=== PATIENT | female | born 1985 | race Caucasian/White ===

== ENCOUNTER 2017-02-21 20:41 | Emergency (ER) | payer MEDICAID ==
[2017-02-21 22:02] LABS: BACTERIA, URINE MOD /hpf; BLOOD, URINE TRACE (NEG); CALCIUM OXALATE CRYSTALS,URINE MANY /hpf; COMMENT (UR) CULTURE INDICATED; CULTURE IF INDICATED CULTURE INDICATED; GLUCOSE,URINE NEG (NEG); KETONE, URINE NEG (NEG); MUCUS URINE FEW /lpf (OCC); NITRITE,URINE NEG (NEG); PH, URINE 6.5 (5.0-8.5); SQUAMOUS EPITHELIAL CELL URINE 14 /hpf (0-5); URINE COLOR YELLOW (YELLW/STRAW)
--- NOTE | 2017-02-21 22:09 | PD ---
HPI Travel History International Travel<30 Days: No Contact w/Intl Traveler<30Days: No Known Affected Area: No History of Present Illness HPI This patient is a 32-year-old 5 para 20-2 EDC is April 22, 2017 presently at 31 weeks and 3 days she presents with chief complaint of suprapubic pain since yesterday intermittent dull to sharp pain no ruptured membranes no vaginal bleeding the baby is active Rest makes it better nothing makes it worse No fever no chills mild nausea no vomiting increase frequency and urgency previously treated for urinary tract infection during this as well as has a history of diet-controlled gestational diabetes Patient recently moved to this area is looking for physician will referred her to [facility] History Past Medical History Narrative Medical Allergy to amoxicillin causes hives diet controlled gestational diabetes Obstetric History Obstetric History First baby born 2004 female infant weight 5 lbs. 13 oz. born at 36 weeks vaginal delivery uncomplicated other than labor Second baby born 2009 female weight 8 lbs. 8 oz. born at 41 weeks vaginal VIP 1 Spontaneous AB 1 Past Surgical History Narrative Surgical Dental surgery Family History Narrative Family History Mother with diabetes Social History Alcohol Use: No Tobacco Use: No Substance Abuse: No Allergies-Medications Comments No known drug allergies Review of Systems General / Constitutional: No: Fever, Weight Gain, Weight Loss, Chills, Other Eyes: No: Diploplia, Blurred Vision, Visual changes, Pain, Photophobia, Other HENT: No: Headaches, Vertigo, Dental Difficulties, Lightheadedness, Other Cardiovascular: No: Irregular Rhythm, Chest Pain or Discomfort, Palpitations, Tachycardia, Syncope, Varicosities, Edema, Cyanosis, Other Respiratory: No: Cough, Short of Breath, Wheezing, Other Gastrointestinal: Nausea, Abdominal Pain Genitourinary: Urgency, Frequency Musculoskeletal: No: Limited ROM, Weakness, Cramping, Edema, Pain, Other Skin: No Rash, No Itching, No Dryness, No Lumps, No Change in Pigmentation, No Change in Nails, No Alopecia, No Lesions, No Breast Lumps, No Breast Tenderness , No Breast Swelling, No Other Neurologic: No: Weakness, Dizziness, Syncope, Focal Abnormalities, Coordination Problem, Headache, Slurred Speech, Seizures, Other Physical Exam Narrative GENERAL: Well-nourished, well-developed patient. Alert oriented 3 and cooperative in no acute distress SKIN: Warm and dry. CARDIOVASCULAR: Regular rate and rhythm without murmurs, gallops, or rubs. RESPIRATORY: Breath sounds equal bilaterally. No accessory muscle use. ABDOMEN/GI: Abdomen soft, non-tender, bowel sounds present, no rebound, no guarding gravid size slightly greater than dates obese no epigastric or right upper quadrant tenderness no rebound tenderness no palpable contractions Gravid to [-] weeks size 33 Fundal Height: [-] GENITOURINARY: External Genitalia: intact and normal in appearance BUS glands: [-] Cervix: [-] Posterior soft Dilatation: [-] 0 Effacement: [-] 0 Station: [-] Ballotable Presentation: [-] Vertex documented by ultrasound Membranes: [intact amnisure is negative Uterine Contractions: [-]0 nonpalpable and none recorded on the FHT's: Category: [-] 1 Baseline: [-] 130 Reactive: [-] + Variability: [-] Moderate znit-hv-yflr variability Decels: [-] 0 EXTREMITIES: No cyanosis or edema. 2+ reflexes BACK: Nontender without obvious deformity. No CVA tenderness. NEUROLOGICAL: Awake and alert. Motor and sensory grossly within normal limits. Five out of 5 muscle strength in all muscle groups. Normal speech. Data Data Vital Signs Reviewed: Yes (blood pressures 129/71 pulse 104 respiration 18 temperature is 98.9) Orders Urinalysis - C+S If Indicated (02/21/17 21:02) Fibronectin (02/21/17 21:14) Labs Bedside ultrasound is done it's a vertex presentation BPD measures 8.17 that equals 32 weeks and 1 day Posterior grade 2 placenta no abruption no previa Positive flexion Positive tone Positive breathing Amniotic fluid index is 14.5 No funneling Cervix is long MDM Medical Record Reviewed: No (no medical records available) Interpretation(s) 32-year-old at 31 weeks and 3 days Not in labor Diet controlled gestational diabetes Obesity In search of physician Rule out UTI Narrative Course / MDM Urinalysis is indicative of urinary tract infection with rbc's white blood cells and leukocyte esterase fibronectin is negative Will discharge patient home Macrobid one by mouth twice a day for 7 days By mouth fluids kick counts Referral to [facility] Plan Patient has been monitored/category 1 tracing with a 10 out of 10 biophysical profile fibronectin Urinalysis amnisure is negative If urinalysis indicative of UTI will treat with Macrobid one by mouth twice a day for 7 days By mouth fluid hydration Warm tub bath Rest kick counts Telephone number to [facility] Diagnosis Diagnosis: Primary Impression: with 31 completed weeks gestation Additional Impression: Urinary tract infection affecting care of mother in second trimester, antepartum Disposition: 01 DISCHARGE HOME Condition: Stable Ashlie Evans MD February 21, 2017 22:09
== END 2017-02-21 22:36 | disposition home or self-care (01) ==
LOC: HOBED 20:41
DX: O23.43 Unspecified infection of urinary tract in pregnancy, third trimester (principal); O24.410 Gestational diabetes mellitus in pregnancy, diet controlled; Z3A.31 31 weeks gestation of pregnancy
CPT/HCPCS: 76815; 81001; 82731; 84112; 87086

== ENCOUNTER 2017-03-09 01:45 | Emergency (ER) | payer MEDICAID ==
[~2017-03-09] VITALS: Ht 170.2 cm; Wt 99.0 kg
[2017-03-09 01:59] VITALS: BP 156/72; PULSE 75; RESP 22; TEMP 98; O2SAT 98
[2017-03-09 02:11] VITALS: BP 133/82; PULSE 101; RESP 20; TEMP 98.2; O2SAT 100
[2017-03-09] MEDS ORDERED: PREN29TA PO (02:14)
[2017-03-09] MEDS ORDERED: SODIUM CHLORIDE 0.9% FLUSH 10 ML FLUSH IVF PRN (02:30)
[2017-03-09 02:57] LABS: AUTOMATED NEUTROPHIL # 11.3 TH/MM3 (1.8-7.7); BASOPHIL % 0.3 % (0.0-2.0); EOSINOPHIL # 0.1 TH/MM3 (0-0.4); EOSINOPHIL % 0.8 % (0.0-4.0); HEMATOCRIT 31.9 % (35.0-46.0); HEMO FLAGS DIFF FINAL; LYMPH % 12.1 % (9.0-44.0); LYMPHOCYTE # 1.7 TH/MM3 (1.0-4.8); MEAN CELL VOLUME 78.9 FL (80.0-100.0); MEAN CORPUSCULAR HEMOGLOBIN 25.8 PG (27.0-34.0); MEAN CORPUSCULAR HGB CONC 32.7 % (32.0-36.0); MONO % 5.3 % (0.0-8.0); NEUT % 81.5 % (16.0-70.0); PLATELET COUNT 342 TH/MM3 (150-450); RED BLOOD COUNT 4.05 MIL/MM3 (4.00-5.30); RED CELL DISTRIBUTION WIDTH 14.2 % (11.6-17.2); WHITE BLOOD COUNT 13.9 TH/MM3 (4.0-11.0)
[2017-03-09 03:04] LABS: APTT (PATIENT) 28.5 SEC (24.3-30.1); INTERNATIONAL NORMALIZED RATIO 0.9 RATIO; PROTHROMBIN TIME - PATIENT 10.2 SEC (9.8-11.6)
--- NOTE | 2017-03-09 03:26 | RADRPT ---
EXAM DATE/TIME: 03/09/2017 03:01 [facility] COMPARISON: No previous studies available for comparison. INDICATIONS : Shortness of breath. MEDICAL HISTORY : None. SURGICAL HISTORY : None. ENCOUNTER: Initial ACUITY: 1 day PAIN SCORE: 0/10 LOCATION: Bilateral chest FINDINGS: A single view of the chest demonstrates the lungs to be symmetrically aerated without evidence of mas s, infiltrate or effusion. The cardiomediastinal contours are unremarkable. Osseous structures are intact. CONCLUSION: Normal examination. Porfirio Urena MD on March 09, 2017 at 3:24 Board Certified Radiologist. This report was verified electronically.
[2017-03-09 03:31] LABS: ANION GAP 11 MEQ/L (5-15); BICARBONATE 22.5 MEQ/L (21.0-32.0); BLOOD UREA NITROGEN 7 MG/DL (7-18); CHLORIDE 104 MEQ/L (98-107); CREATINE KINASE 42 U/L (26-192); GLOMERULAR FILTRATION RATE 146 ML/MIN (>89); MAGNESIUM 1.7 MG/DL (1.5-2.5); POTASSIUM 3.7 MEQ/L (3.5-5.1); SODIUM (NA) 137 MEQ/L (136-145)
--- NOTE | 2017-03-09 03:53 | PD ---
HPI Chief Complaint: Abdominal Pain Time Seen by Provider: 02:26 Travel History International Travel<30 days: No Contact w/Intl Traveler<30days: No Traveled to known affect area: No History of Present Illness HPI 32yo F who is 34 weeks with gestational diabetes presents to the ED with c/o midsternal chest pain and sob for a few hours. Denies any n/v, fever, cough, vaginal bleeding. States pain is midsternal, xyphoid process and at times radiates down abdomen. Denies previous similar pain. Denies history of PE or DVT. PFSH Past Medical History Diabetes: Yes (gestational ) Patient Takes Glucophage: No Tetanus Vaccination: > 5 Years ?: : 5 Para: 2 Miscarriage: 1 : 1 Past Surgical History Surgical History: No Previous Surgery Social History Alcohol Use: No Tobacco Use: No Substance Use: No Allergies-Medications (Allergen,Severity, Reaction): Coded Allergies: Amoxicillin (Verified Allergy, Mild, Hives, 03/09/17) Reported Meds & Prescriptions Reported Meds & Active Scripts Active Macrobid (Nitrofurantoin Monohydrate Macrocrystals) 100 Mg Capsule 100 Mg PO BID 5 Days Reported Plus Iron 29-1 mg ( Vit-Iron Carbonyl) 1 Tab Tab 1 Tab PO DAILY Review of Systems Except as stated in HPI: all other systems reviewed are Neg Physical Exam Narrative GENERAL: 32yo F in mild distress. SKIN: Focused skin assessment warm/dry. HEAD: Atraumatic. Normocephalic. CARDIOVASCULAR: Regular rate and rhythm. No murmur appreciated. RESPIRATORY: No accessory muscle use. Clear to auscultation. Breath sounds equal bilaterally. GASTROINTESTINAL: Abdomen soft, gravid. No tenderness to palpation. MUSCULOSKELETAL: No obvious deformities. No clubbing. No cyanosis. No edema. NEUROLOGICAL: Awake and alert. No obvious cranial nerve deficits. Motor grossly within normal limits. Normal speech. PSYCHIATRIC: Appropriate mood and affect; insight and judgment normal. Data Data Last Documented VS Vital Signs Date Time Temp Pulse Resp B/P Pulse Ox O2 Delivery O2 Flow Rate FiO2 03/09/17 06:41 85 19 124/67 98 03/09/17 04:00 Room Air 03/09/17 02:11 98.2 Orders Electrocardiogram (03/09/17 02:26) Basic Metabolic Panel (Bmp) (03/09/17 02:26) Ckmb (Isoenzyme) Profile (03/09/17 02:26) Complete Blood Count With Diff (03/09/17 02:26) Magnesium (Mg) (03/09/17 02:26) Prothrombin Time / Inr (Pt) (03/09/17 02:26) Act Partial Throm Time (Ptt) (03/09/17 02:26) Troponin I (03/09/17 02:26) Lipase (03/09/17 02:26) Ecg Monitoring (03/09/17 02:26) Bilateral Bp Monitoring (03/09/17 02:26) Iv Access Insert/Monitor (03/09/17 02:26) Oximetry (03/09/17 02:26) Oxygen Administration (03/09/17 02:26) Sodium Chloride 0.9% Flush (Ns Flush) (03/09/17 02:30) Chest, Single Ap (03/09/17 ) Urinalysis - C+S If Indicated (03/09/17 03:53) Acetaminophen (Tylenol) (03/09/17 04:00) Lung Scan - Perfusion (03/09/17 02:26) Ed Poc Ultrasound (03/09/17 ) Ed Poc Ultrasound (03/09/17 ) Labs Laboratory Tests Test 03/09/17 03/09/17 02:40 03:00 White Blood Count 13.9 TH/MM3 Red Blood Count 4.05 MIL/MM3 Hemoglobin 10.5 GM/DL Hematocrit 31.9 % Mean Corpuscular Volume 78.9 FL Mean Corpuscular Hemoglobin 25.8 PG Mean Corpuscular Hemoglobin 32.7 % Concent Red Cell Distribution Width 14.2 % Platelet Count 342 TH/MM3 Mean Platelet Volume 8.7 FL Neutrophils (%) (Auto) 81.5 % Lymphocytes (%) (Auto) 12.1 % Monocytes (%) (Auto) 5.3 % Eosinophils (%) (Auto) 0.8 % Basophils (%) (Auto) 0.3 % Neutrophils # (Auto) 11.3 TH/MM3 Lymphocytes # (Auto) 1.7 TH/MM3 Monocytes # (Auto) 0.7 TH/MM3 Eosinophils # (Auto) 0.1 TH/MM3 Basophils # (Auto) 0.0 TH/MM3 CBC Comment DIFF FINAL Differential Comment Prothrombin Time 10.2 SEC Prothromb Time International 0.9 RATIO Ratio Activated Partial 28.5 SEC Thromboplast Time Sodium Level 137 MEQ/L Potassium Level 3.7 MEQ/L Chloride Level 104 MEQ/L Carbon Dioxide Level 22.5 MEQ/L Anion Gap 11 MEQ/L Blood Urea Nitrogen 7 MG/DL Creatinine 0.49 MG/DL Estimat Glomerular Filtration 146 ML/MIN Rate Random Glucose 138 MG/DL Calcium Level 8.8 MG/DL Magnesium Level 1.7 MG/DL Total Creatine Kinase 42 U/L Troponin I LESS THAN 0.02 NG/ML Lipase 95 U/L Urine Color YELLOW Urine Turbidity HAZY Urine pH 6.0 Urine Specific [place] 1.022 Urine Protein 30 mg/dL Urine Glucose (UA) NEG mg/dL Urine Ketones 150 mg/dL Urine Occult Blood NEG Urine Nitrite NEG Urine Bilirubin NEG Urine Urobilinogen 2.0 MG/DL Urine Leukocyte Esterase SMALL Urine RBC 59 /hpf Urine WBC 4 /hpf Urine Squamous Epithelial 2 /hpf Cells Urine Renal Epithelial Cells <1 /hpf Urine Calcium Oxalate Crystals OCC /hpf Urine Bacteria RARE /hpf Urine Mucus MOD /lpf Microscopic Urinalysis Comment CULT NOT INDICATED MDM Medical Decision Making Medical Screen Exam Complete: Yes Emergency Medical Condition: Yes Interpretation(s) EKG: Sinus tachycardia at 105bpm. Normal axis. Differential Diagnosis GERD vs. anxiety vs. atypical chest pain vs. musculoskeletal pain vs. costochondritis vs. pneumonia vs. pulmonary embolism Narrative Course 32yo F with atypical pleuritic chest pain and sob. Labs reviewed, leukocytosis at 13.9. Troponin negative. Lipase normal. UA showed small leukocyte. Rare bacteria. RBC 59. Culture not indicated. Pt states she was recently treated for UTI and although culture is not indicated, there are leukocyte and some bacteria. Since pt is , will cover with macrobid. CXR negative. VQ scan negative. Pt given acetaminophen and reevaluated at bedside. Pt states that she is no longer sob and chest pain has improved. States that when she took acetaminophen at home it didnt help but now she has no pain. Denies any abdominal pain. Instructed pt to return to the ED immediately if she has chest pain, sob, or abdominal pain or vaginal bleeding. Pt has no abdominal pain so does not need to go to OBGYN for monitoring. Pt has no abdominal pain on exam. Procedures Procedure Narrative Bedside US performed to confirm IUP and showed positive fetus with positive FHR 124. Diagnosis Primary Impression: Atypical chest pain Patient Instructions: General Instructions Departure Forms: Tests/Procedures Additional Instructions: Please follow up with your PMD in 1-2 days. Return to the ED if symptoms worsen. Med/Other Pt SpecificInfo: Prescription(s) given Scripts Nitrofurantoin Monohydrate Macrocrystals (Macrobid)100 Mg [id number] Mg PO BID 5 Days Ref 0 Prov:Nani Russell DO 03/09/17 Disposition: 01 DISCHARGE HOME Condition: Stable Nani Russell DO March 09, 2017 03:53
[2017-03-09 04:00] VITALS: BP 124/60; PULSE 100; RESP 18; O2SAT 99
[2017-03-09] MEDS ORDERED: ACETAMINOPHEN 325 MG TAB PO ONE (04:00)
[2017-03-09 04:43] LABS: BACTERIA, URINE RARE /hpf; BLOOD, URINE NEG (NEG); CALCIUM OXALATE CRYSTALS,URINE OCC /hpf; GLUCOSE,URINE NEG (NEG); KETONE, URINE 150 mg/dL (NEG); MUCUS URINE MOD /lpf (OCC); NITRITE,URINE NEG (NEG); RENAL EPITHELIAL CELLS <1 /hpf; SQUAMOUS EPITHELIAL CELL URINE 2 /hpf (0-5); URINE COLOR YELLOW (YELLW/STRAW)
[2017-03-09 04:45] LABS: COMMENT (UR) CULT NOT INDICATED; CULTURE IF INDICATED CULT NOT INDICATED
--- NOTE | 2017-03-09 05:28 | RADRPT ---
EXAM DATE/TIME: 03/09/2017 05:02 [facility] COMPARISON: No previous studies available for comparison. INDICATIONS : Shortness of breath with chest pain for two hours. 35 weeks . DOSE: 1.1 mCi Tc99m Labeled MAA IV MEDICAL HISTORY : . Gestational diabetes. SURGICAL HISTORY : None. ENCOUNTER: Initial ACUITY: 1 day PAIN SCALE: 1/10 LOCATION: chest TECHNIQUE: The patient was injected with MAA, and eight-view perfusion scan was performed. FINDINGS: PERFUSION: There is a homogenous pattern of radiotracer uptake throughout both lungs. CONCLUSION: Normal examination. Porfirio Urena MD on March 09, 2017 at 5:27 Board Certified Radiologist. This report was verified electronically.
[2017-03-09] MEDS ORDERED: MACR100C2 PO (06:35)
[2017-03-09 06:41] VITALS: BP 124/67
--- NOTE | 2017-03-09 14:19 | EKG ---
Date Performed: 03/09/2017 Time Performed: 02:08:09 PTAGE: 32 years EKG: SINUS TACHYCARDIA ABNORMAL RHYTHM ECG NO PREVIOUS TRACING DOCTOR: Justice Hensley Interpretating Date/Time 03/09/2017 14:17:39
== END 2017-03-09 07:00 | disposition home or self-care (01) ==
LOC: NEPE 01:45
DX: O26.893 Other specified pregnancy related conditions, third trimester (principal); O24.419 Gestational diabetes mellitus in pregnancy, unspecified control; R07.89 Other chest pain; R06.02 Shortness of breath; Z3A.34 34 weeks gestation of pregnancy
CPT/HCPCS: 71010; 78580; 80048; 81001; 82550; 83690; 83735; 84484; 85025; 85610; 85730; 93005; 99285; A9540

== ENCOUNTER 2017-04-05 10:04 | Inpatient (IN) | payer MEDICAID ==
[2017-04-05] VITALS (14 sets, daily range): BP systolic 120–138; BP diastolic 60–76; PULSE 79–121; RESP 16–18; TEMP 98.6
[2017-04-05] MEDS: GENTAMICIN INJ 100 MG in SODIUM CHLORIDE 0.9% INJ 100 ML IV SCH ×2 (03:00→14:59)
[~2017-04-05 10:04] MED LIST: PREN29TA PO
--- NOTE | 2017-04-05 10:37 | PD ---
HPI Chief Complaint Contractions and back pain Date Seen: Apr 05, 2017 Travel History International Travel<30 Days: No Contact w/Intl Traveler<30Days: No Known Affected Area: No History of Present Illness HPI Patient is a 32 year old at 37-4/7 weeks gestation who presents today for contractions and back pain. The back pain started about 2 hours ago and is described as a constant, sharp pain. She has tried Tylenol without relief in pain. Contractions are occurring q15-20 minutes and have been occurring for the past several days. She denies any dysuria but has noticed pink tinged fluid on her toilet paper. She denies any vaginal bleeding or discharge. No gush or leaking of fluid. Positive movement. care with [facility]. History Past Medical History Narrative Medical Gestational diabetes- diet controlled Obstetric History Obstetric History x 2, one at 36 weeks gestation, one at 41 weeks gestation 1 spontaneous 1 elective Past Surgical History Surgical History: No Previous Surgery Family History Family History: Negative Social History Alcohol Use: No Tobacco Use: No Substance Abuse: No Allergies-Medications (Allergen,Severity, Reaction): Coded Allergies: Amoxicillin (Verified Allergy, Mild, Hives, 04/03/17) Home Meds Reported Medications Vit-Iron Carbonyl ( Plus Iron 29-1 mg)1 Tab Tab1 Tab PO DAILY #30 TAB Ref 0 03/09/17 Review of Systems Except as stated in HPI: all other systems reviewed are Neg General / Constitutional: No: Fever, Chills Eyes: No: Visual changes HENT: No: Headaches Cardiovascular: No: Chest Pain or Discomfort Respiratory: No: Short of Breath Gastrointestinal: Nausea, Diarrhea, Abdominal Pain, No: Vomiting Genitourinary: Pelvic Pain, No: Discharge, Vaginal Bleeding Musculoskeletal: No: Edema Psychiatric: No: Substance Abuse Physical Exam Narrative GENERAL: Well-nourished, well-developed patient. SKIN: Warm and dry. HEAD: Normocephalic and atraumatic. EYES: No scleral icterus. No injection or drainage. ENT: No nasal drainage noted. Mucous membranes pink. Airway patent. NECK: Supple, trachea midline. No JVD. CARDIOVASCULAR: Regular rate and rhythm without murmurs, gallops, or rubs. RESPIRATORY: Breath sounds equal bilaterally. No accessory muscle use. ABDOMEN/GI: Abdomen soft, non-tender, bowel sounds present, no rebound, no guarding Gravid to 37 weeks size GENITOURINARY: External Genitalia: intact and normal in appearance BUS glands: normal Cervix: posterior Dilatation: 1 Effacement: 0 Station: -3 Presentation: vertex Membranes: intact Uterine Contractions: occasional FHT's: Category: I Baseline: 130 Reactive: + Variability: moderate Decels: none EXTREMITIES: No cyanosis or edema. BACK: Nontender without obvious deformity. No CVA tenderness. NEUROLOGICAL: Awake and alert. Motor and sensory grossly within normal limits. Normal speech. Data Data Vital Signs Reviewed: Yes MDM Medical Record Reviewed: Yes Narrative Course / MDM 32 year old at 37-4/7 weeks gestation. 1. IUP- Category I tracing, reassuring. 2. Contractions- occasional, not in labor at this time. 3. No CVA tenderness, back pain likely secondary to contractions/early labor. Will give Fentanyl 50mcg IM once for pain. 4. Bedside glucose 103. Discharge to home, follow-up with [facility]. sdw Dr. Tanner Addendum: No pain relief with Fentanyl. Patient continues to have significant pain. Will obtain UA for further evaluation. UA significant for moderate blood, likely secondary to nephrolithiasis. Will admit for 24 hour observation for pain control and hydration in the setting of nephrolithiasis. Diagnosis Diagnosis: Primary Impression: Back pain affecting in third trimester Additional Impression: 37 weeks gestation of Allison Hernandez MD R2 Apr 05, 2017 10:37
[2017-04-05 12:20] LABS: BACTERIA, URINE RARE /hpf; BLOOD, URINE MOD (NEG); COMMENT (UR) CULTURE INDICATED; CULTURE IF INDICATED CULTURE INDICATED; GLUCOSE,URINE NEG (NEG); KETONE, URINE 40 mg/dL (NEG); MUCUS URINE FEW /lpf (OCC); NITRITE,URINE NEG (NEG); PH, URINE 5.5 (5.0-8.5); SQUAMOUS EPITHELIAL CELL URINE 8 /hpf (0-5); URINE COLOR YELLOW (YELLW/STRAW)
[2017-04-05] MEDS ORDERED: NALOXONE HCL 0.4 MG/ML AMP IV PRN (13:15)
[2017-04-05] MEDS ORDERED: ACETAMINOPHEN 325 MG TAB PO PRN (13:15)
[2017-04-05] MEDS ORDERED: SODIUM CHLORIDE 0.9% FLUSH 10 ML FLUSH IV FLUSH PRN (13:15)
--- NOTE | 2017-04-05 13:15 | HHI.HP ---
History & Physical H&P HPI Chief Complaint Contractions and back pain Date Seen: Apr 05, 2017 Travel History International Travel<30 Days: No Contact w/Intl Traveler<30Days: No Known Affected Area: No History of Present Illness HPI Patient is a 32 year old at 37-4/7 weeks gestation who presents today for contractions and back pain. The back pain started about 2 hours ago and is described as a constant, sharp pain. She has tried Tylenol without relief in pain. Contractions are occurring q15-20 minutes and have been occurring for the past several days. She denies any dysuria but has noticed pink tinged fluid on her toilet paper. She denies any vaginal bleeding or discharge. No gush or leaking of fluid. Positive movement. care with [facility]. History (Limited) History Past Medical History Narrative Medical Gestational diabetes- diet controlled Obstetric History Obstetric History x 2, one at 36 weeks gestation, one at 41 weeks gestation 1 spontaneous 1 elective Past Surgical History Surgical History: No Previous Surgery Family History Family History: Negative Social History Alcohol Use: No Tobacco Use: No Substance Abuse: No Allergies-Medications Allergies-Medications (Allergen,Severity, Reaction): Coded Allergies: Amoxicillin (Verified Allergy, Mild, Hives, 04/03/17) Home Meds Reported Medications Vit-Iron Carbonyl ( Plus Iron 29-1 mg)1 Tab Tab1 Tab PO DAILY #30 TAB Ref 0 03/09/17 ROS Review of Systems Except as stated in HPI: all other systems reviewed are Neg General / Constitutional: No: Fever, Chills Eyes: No: Visual changes HENT: No: Headaches Cardiovascular: No: Chest Pain or Discomfort Respiratory: No: Short of Breath Gastrointestinal: Nausea, Diarrhea, Abdominal Pain, No: Vomiting Genitourinary: Pelvic Pain, No: Discharge, Vaginal Bleeding Musculoskeletal: No: Edema Psychiatric: No: Substance Abuse Physical Exam Physical Exam Narrative GENERAL: Well-nourished, well-developed patient. SKIN: Warm and dry. HEAD: Normocephalic and atraumatic. EYES: No scleral icterus. No injection or drainage. ENT: No nasal drainage noted. Mucous membranes pink. Airway patent. NECK: Supple, trachea midline. No JVD. CARDIOVASCULAR: Regular rate and rhythm without murmurs, gallops, or rubs. RESPIRATORY: Breath sounds equal bilaterally. No accessory muscle use. ABDOMEN/GI: Abdomen soft, non-tender, bowel sounds present, no rebound, no guarding Gravid to 37 weeks size GENITOURINARY: External Genitalia: intact and normal in appearance BUS glands: normal Cervix: posterior Dilatation: 1 Effacement: 0 Station: -3 Presentation: vertex Membranes: intact Uterine Contractions: occasional FHT's: Category: I Baseline: 130 Reactive: + Variability: moderate Decels: none EXTREMITIES: No cyanosis or edema. BACK: Nontender without obvious deformity. No CVA tenderness. NEUROLOGICAL: Awake and alert. Motor and sensory grossly within normal limits. Normal speech. Data Data Data Vital Signs Reviewed: Yes MDM MDM Medical Record Reviewed: Yes Narrative Course / MDM 32 year old at 37-4/7 weeks gestation. 1. IUP- Category I tracing, reassuring. 2. Contractions- occasional, not in labor at this time. 3. No CVA tenderness, back pain likely secondary to contractions/early labor. Will give Fentanyl 50mcg IM once for pain. 4. Bedside glucose 103. Discharge to home, follow-up with [facility]. sdw Dr. Tanner Addendum: No pain relief with Fentanyl. Patient continues to have significant pain. Will obtain UA for further evaluation. UA significant for moderate blood, likely secondary to nephrolithiasis. Will admit for 24 hour observation for pain control and hydration in the setting of nephrolithiasis. Allison Hernandez MD R2 Apr 05, 2017 13:15
[2017-04-05] MEDS: ACETAMINOPHEN/HYDROcodone 325 MG/10 MG TAB PO PRN ×2 (13:51→21:46)
[2017-04-05] MEDS ORDERED: ACETAMINOPHEN/HYDROcodone 325 MG/5 MG TAB PO PRN (14:00)
[2017-04-05] MEDS: ONDANSETRON ODT 4 MG TAB PO PRN ×2 (14:18→19:43)
[2017-04-05 14:39] LABS: AUTOMATED NEUTROPHIL # 13.8 TH/MM3 (1.8-7.7); BASOPHIL % 0.2 % (0.0-2.0); EOSINOPHIL % 0.2 % (0.0-4.0); HEMATOCRIT 32.9 % (35.0-46.0); HEMO FLAGS DIFF FINAL; LYMPH % 8.2 % (9.0-44.0); LYMPHOCYTE # 1.3 TH/MM3 (1.0-4.8); MEAN CORPUSCULAR HEMOGLOBIN 25.1 PG (27.0-34.0); MEAN CORPUSCULAR HGB CONC 32.2 % (32.0-36.0); MONO % 4.3 % (0.0-8.0); NEUT % 87.1 % (16.0-70.0); PLATELET COUNT 350 TH/MM3 (150-450); RED BLOOD COUNT 4.21 MIL/MM3 (4.00-5.30); RED CELL DISTRIBUTION WIDTH 14.9 % (11.6-17.2); WHITE BLOOD COUNT 15.8 TH/MM3 (4.0-11.0)
[2017-04-05 14:49] LABS: BICARBONATE 22.2 MEQ/L (21.0-32.0)
--- NOTE | 2017-04-05 16:04 | RADRPT ---
EXAM DATE/TIME: 04/05/2017 15:12 [facility] COMPARISON: No previous studies available for comparison. INDICATIONS : Flank pain. MEDICAL HISTORY : . Gestational diabetes. SURGICAL HISTORY : None. ENCOUNTER: Initial ACUITY: 2 days PAIN SCORE: 8/10 LOCATION: Bilateral flank MEASUREMENTS: RIGHT KIDNEY: 12.5 x 5.5 x 5.4 cm LEFT KIDNEY: 12.6 x 5.3 x 5.9 cm COMPLETE APPROPRIATE ITEMS PRE PROCEDURE: ID x 2: Complete NameDate of BirthPatient Name Band Education: Nurse/Technologist explained proce dure to patient/family. Patient/family demonstrates understanding of procedure. FINDINGS: RIGHT KIDNEY: Renal cortex is normal in thickness and echotexture. No hydronephrosis, stone, or mass. LEFT KIDNEY: There are mild hydronephrotic changes. There is a 6 mm x 4 mm stone in the upper pole. The renal noel ex is normal in thickness. No mass lesion is identified. BLADDER: Within normal limits given the degree of distension. CONCLUSION: 1. Mild hydronephrotic changes on the left. With a 6 mm stone seen in the collecting system. Harrison Parrish MD on April 05, 2017 at 15:58 Board Certified Radiologist. This report was verified electronically.
--- NOTE | 2017-04-05 16:09 | HHI.HP ---
History & Physical H&P The patient is 32-year-old white female 37 weeks presents complaining of low back pain, denies bleeding or leakage of fluid. No contractions seen on the monitor. heart rate tracing is reactive. Patient initially given IM narcotic which did not help her low back pain. She does not have CVA tenderness , cervix is long fingertip posterior. Patient's review of systems is otherwise negative with no headache blurry vision shortness of breath chest pain or extremity weakness. Urinalysis shows moderate blood 1+ protein large leukocyte esterase but rare bacteria which would be consistent with possible renal stone. The patient's had a history of kidney stones in the past. She was examined along with the family medicine residents and agree with their assessment, plan to admit the patient for observation and IV hydration will give gentamicin IV just cover possible UTI, will strain the urine for possible stone passage, and provide of by mouth or intravenous pain medication when necessary, also renal ultrasound to be done. Thomas Tanner II, MD Apr 05, 2017 16:09
[2017-04-05] MEDS: SODIUM CHLORIDE 0.9% FLUSH 10 ML FLUSH IV FLUSH SCH (21:00)
[2017-04-05] MEDS: LACTATED RINGER'S 1000 ML INJ 1,000 ML IV SCH ×2 (21:07→22:07)
[2017-04-05] MEDS: ZOLPIDEM TARTRATE 5 MG TAB PO PRN (21:46)
[2017-04-06] VITALS (11 sets, daily range): BP systolic 109–144; BP diastolic 49–77; PULSE 93–116; RESP 20; TEMP 98–98.7
[2017-04-06] MEDS: GENTAMICIN INJ 100 MG in SODIUM CHLORIDE 0.9% INJ 100 ML IV SCH ×2 (03:00→16:11)
[2017-04-06] MEDS: ACETAMINOPHEN/HYDROcodone 325 MG/10 MG TAB PO PRN ×3 (03:04→20:11)
--- NOTE | 2017-04-06 07:18 | PD.OB.ANTE ---
Subjective Interval History No acute issues overnight. Vitals are stable, patient remains afebrile. She rates her pain as 6 out of 10 this morning. She cannot tell if it has gotten any better since yesterday, however the Fentanyl is helping. She denies any vaginal bleeding or discharge. No gush or leaking of fluid. Positive movement. No contractions. Antepartum ROS: Reports: movement normal, Denies: New complaints, Loss of fluid, Vaginal bleeding, Contractions Objective Vital Signs Vital Signs Date Time Temp Pulse Resp B/P Pulse Ox O2 Delivery O2 Flow Rate FiO2 04/06/17 04:57 98.1 04/06/17 04:53 95 120/59 04/05/17 23:06 96 120/60 04/05/17 23:06 98.6 18 04/05/17 19:48 98.6 18 04/05/17 19:47 93 138/71 04/05/17 18:09 79 130/64 04/05/17 18:08 18 04/05/17 11:30 101 04/05/17 11:25 90 04/05/17 11:20 96 04/05/17 11:15 101 04/05/17 11:13 86 130/68 04/05/17 11:10 121 04/05/17 11:05 111 04/05/17 10:28 16 04/05/17 10:27 96 129/76 Lab & Micro Results Test 04/05/17 04/05/17 11:59 14:00 Urine Color YELLOW Urine Turbidity HAZY Urine pH 5.5 Urine Specific [place] 1.022 Urine Protein 30 mg/dL Urine Glucose (UA) NEG mg/dL Urine Ketones 40 mg/dL Urine Occult Blood MOD Urine Nitrite NEG Urine Bilirubin NEG Urine Urobilinogen LESS THAN 2.0 MG/DL Urine Leukocyte Esterase LARGE Urine RBC 10 /hpf Urine WBC 10 /hpf Urine Squamous Epithelial 8 /hpf Cells Urine Bacteria RARE /hpf Urine Mucus FEW /lpf Microscopic Urinalysis Comment CULTURE INDICATED White Blood Count 15.8 TH/MM3 Red Blood Count 4.21 MIL/MM3 Hemoglobin 10.6 GM/DL Hematocrit 32.9 % Mean Corpuscular Volume 78.0 FL Mean Corpuscular Hemoglobin 25.1 PG Mean Corpuscular Hemoglobin 32.2 % Concent Red Cell Distribution Width 14.9 % Platelet Count 350 TH/MM3 Mean Platelet Volume 9.1 FL Neutrophils (%) (Auto) 87.1 % Lymphocytes (%) (Auto) 8.2 % Monocytes (%) (Auto) 4.3 % Eosinophils (%) (Auto) 0.2 % Basophils (%) (Auto) 0.2 % Neutrophils # (Auto) 13.8 TH/MM3 Lymphocytes # (Auto) 1.3 TH/MM3 Monocytes # (Auto) 0.7 TH/MM3 Eosinophils # (Auto) 0.0 TH/MM3 Basophils # (Auto) 0.0 TH/MM3 CBC Comment DIFF FINAL Differential Comment Sodium Level 136 MEQ/L Potassium Level 4.0 MEQ/L Chloride Level 103 MEQ/L Carbon Dioxide Level 22.2 MEQ/L Anion Gap 11 MEQ/L Blood Urea Nitrogen 6 MG/DL Creatinine 0.54 MG/DL Estimat Glomerular Filtration 131 ML/MIN Rate Random Glucose 88 MG/DL Calcium Level 9.1 MG/DL Date/Time Procedure Status Source Growth 04/05/17 11:59 Urine Culture Received Urine Clean Catch Pending Physical Exam GENERAL: Well-nourished, well-developed patient. CARDIOVASCULAR: Regular rate and rhythm without murmurs, gallops, or rubs. RESPIRATORY: Breath sounds equal bilaterally. No accessory muscle use. ABDOMEN/GI: Abdomen soft, non-tender. Fundus: 37 GENITOURINARY: Uterine Contractions: occasional FHT's: Category: I Baseline: 140 Reactive: + Variability: moderate Decels: none EXTREMITIES: No cyanosis or edema, non-tender, without signs of DVT. Assessment and Plan Assessment and Plan 32 year old at 37-5/7 weeks gestation. 1. IUP- Category I tracing, reassuring. 2. Nephrolithiasis- Renal ultrasound significant for 6 mm stone in the left collecting system with mild hydronephrosis. BUN/creat wnl. Continue pain control with Fentanly PRN Continue Gentamicin for coverage of possible UTI Continue to strain urine Heating pad PRN Anticipate discharge home once pain is better controlled. jurgen Tanner and Allison Reid MD R2 Apr 06, 2017 07:18
[2017-04-06] MEDS ORDERED: TAMSULOSIN HCL 0.4 MG CAP PO SCH (09:00)
[2017-04-06] MEDS ORDERED: MULTIVIT/MIN/PREN/FOL AC/IRON PRENATAL TAB PO SCH (09:00)
[2017-04-06] MEDS: SODIUM CHLORIDE 0.9% FLUSH 10 ML FLUSH IV FLUSH SCH ×2 (09:00→21:00)
[2017-04-06] MEDS: LACTATED RINGER'S 1000 ML INJ 1,000 ML IV SCH ×2 (16:08→23:00)
[2017-04-06] MEDS: ZOLPIDEM TARTRATE 5 MG TAB PO PRN (22:22)
[2017-04-07] MEDS: GENTAMICIN INJ 100 MG in SODIUM CHLORIDE 0.9% INJ 100 ML IV SCH (03:15)
[2017-04-07 07:23] VITALS: RESP 17; TEMP 98
[2017-04-07 07:24] VITALS: BP 118/63; PULSE 98
[2017-04-07] MEDS ORDERED: MACR100C2 PO (08:09)
[2017-04-07] MEDS ORDERED: HYDR-3583 PO (08:09)
--- NOTE | 2017-04-07 08:15 | HHI.DCPOC ---
Discharge Care Plan Diagnosis: (1) Nephrolithiasis (2) UTI (urinary tract infection) in in third trimester Report Symptoms to Your Doctor -Temperature above 100.5 degrees -Redness, of incision or excessive or foul smelling drainage -Unusual pain or calf pain -Increased vaginal bleeding -Painful or difficulty urinating -Feelings of extreme sadness or anxiety after 2 weeks Goals to Promote Your Health * To prevent worsening of your condition and complications * To maintain your health at the optimal level Directions to Meet Your Goals Take your medications as prescribed Follow your dietary instruction Follow activity as directed Ensure plenty of rest for recovery Drink fluids for hydration Keep your appointments as scheduled Take your immunizations and boosters as scheduled If your symptoms worsen call your PCP, if no PCP go to Urgent Care Center or Emergency Room Smoking is Dangerous to Your Health. Avoid second hand smoke Call the 24-hour crisis hotline for domestic abuse at Jose M Schwab MD R2 Apr 07, 2017 08:14
--- NOTE | 2017-04-07 08:38 | PD.OB.ANTE ---
Subjective Diagnosis: (1) UTI (urinary tract infection) in in third trimester (2) Nephrolithiasis Interval History Patient is doing well this morning. Her pain is controlled with by mouth pain medication. Patient states it can sometimes take up to a week for her to pass a kidney stone. She feels comfortable going home with by mouth pain medication. She denies fevers or chills. Patient understands she can come back at any time for fevers, chills (signs of infection), intractable pain. Antepartum ROS: Reports: movement normal, Denies: New complaints, Loss of fluid, Vaginal bleeding, Contractions ( Jose M Schwab MD R2) Objective Vital Signs Vital Signs Date Time Temp Pulse Resp B/P Pulse Ox O2 Delivery O2 Flow Rate FiO2 04/07/17 07:24 98 118/63 04/07/17 07:23 17 04/07/17 07:23 98.0 04/06/17 22:22 116 129/49 04/06/17 22:21 98.7 04/06/17 22:21 20 04/06/17 21:30 20 04/06/17 19:34 20 04/06/17 19:34 109 129/59 04/06/17 19:33 98.0 04/06/17 16:02 98.0 20 04/06/17 15:55 98 109/51 04/06/17 12:10 93 114/52 Lab & Micro Results Date/Time Procedure Status Source Growth 04/05/17 11:59 Urine Culture - Final Complete Urine Clean Catch 50-100,000 CFU/ML MIXED GRAM POSITIVE... Physical Exam GENERAL: Well-nourished, well-developed patient. CARDIOVASCULAR: Regular rate and rhythm without murmurs, gallops, or rubs. RESPIRATORY: Breath sounds equal bilaterally. No accessory muscle use. ABDOMEN/GI: Abdomen soft, non-tender. (Jose M Schwab MD R2) Assessment and Plan Assessment and Plan 32 year old at 37-6/7 weeks gestation. 1. IUP- Category I tracing, reassuring. 2. Nephrolithiasis- Renal ultrasound significant for 6 mm stone in the left collecting system with mild hydronephrosis. BUN/creat wnl. Pain controlled with [place] by mouth, continue this at home; patient instructed not to drive or operate any machinery on this medication. Macrobid 100 mg by mouth twice a day every 12 hours 7 days. Patient instructed to return with signs of infection or intractable pain which would include fevers, chills, intractable pain Discussed with Dr. Gayle (Jose M Schwab MD R2) Collaborating MD Comments Patient with nephrolithiasis, improved pain since admission Will discharge on pain medication and antibiotic therapy (Dania Gayle MD) Jose M Schwab MD R2 Apr 07, 2017 08:38 aDnia Gayle MD Apr 07, 2017 09:22
== END 2017-04-07 08:47 | disposition home or self-care (01) | DRG 781 ==
LOC: HOBED 10:04 → H2EA 13:29 → OBSVTOIN 04-06 09:38
PROVIDERS: ADMIT Obstetrics & Gynecology Maternal & Fetal Medicine; ATTEND Obstetrics & Gynecology Maternal & Fetal Medicine
DX: O23.03 Infections of kidney in pregnancy, third trimester (principal); N13.6 Pyonephrosis; Z87.442 Personal history of urinary calculi; Z86.32 Personal history of gestational diabetes; Z3A.37 37 weeks gestation of pregnancy
CPT/HCPCS: 76775; 80048; 81001; 82948; 85025; 87086; J1580; J3010; J7120

== ENCOUNTER 2017-04-16 20:01 | Inpatient (IN) | payer MEDICAID ==
[~2017-04-16] VITALS: Ht 157.5 cm; Wt 111.6 kg
[~2017-04-16 20:01] MED LIST changes: +HYDR-3583 PO; +MACR100C2 PO
[2017-04-16] MEDS: LACTATED RINGER'S 1000 ML INJ 1,000 ML IV SCH (20:45)
[2017-04-16] MEDS ORDERED: SODIUM CHLORIDE 0.9% FLUSH 10 ML FLUSH IV FLUSH PRN (21:15)
[2017-04-16] MEDS ORDERED: DINOPROSTONE 10 MG VAG INSERT VAGINAL ONE (21:15)
--- NOTE | 2017-04-16 21:24 | HHI.HP ---
HPI Chief Complaint Followed for induction for LGA and diabetes in Date Seen: Apr 16, 2017 Travel History International Travel<30 Days: No Contact w/Intl Traveler<30Days: No Known Affected Area: No History of Present Illness HPI The patient is 32-year-old white female 39 weeks [facility] as referred in for Cervidil cervical ripening and induction tomorrow. She has a history of gestational diabetes well-controlled with diet and an LGA baby recent ultrasound was 8 1/2 pounds. She denies pain bleeding or rupture the membranes. Heart rate tracing is reactive is monica about every 8 minutes Para: 2 : 5 History Past Medical History Narrative Medical Obesity, gestational diabetes diet controlled Obstetric History Obstetric History To 2 vaginal deliveries first one 5 pounds, second baby 8 lbs. 8 oz. 2 early losses Past Surgical History Narrative Surgical [place] tooth extraction Social History Alcohol Use: No Tobacco Use: No Substance Abuse: No Allergies-Medications (Allergen,Severity, Reaction): Coded Allergies: Amoxicillin (Verified Allergy, Mild, Hives, 04/10/17) Home Meds Active Scripts Nitrofurantoin Monohydrate Macrocrystals (Macrobid)100 Mg [id number] Mg PO BID #14 CAP Ref 0 Prov:Jose M Schwab MD R2 04/07/17 Hydrocodone-Acetaminophen 10-325 mg Tab1 Tab PO Q4H PRN (PAIN SCALE 6 TO 10) # 20 TAB Ref 0 Prov:Jose M Schwab MD R2 04/07/17 Reported Medications Vit-Iron Carbonyl ( Plus Iron 29-1 mg)1 Tab Tab1 Tab PO DAILY #30 TAB Ref 0 03/09/17 Review of Systems General / Constitutional: No: Fever, Weight Gain, Chills, Other Eyes: No: Diploplia, Blurred Vision, Visual changes, Pain, Photophobia HENT: No: Headaches, Vertigo, Lightheadedness Cardiovascular: No: Irregular Rhythm, Chest Pain or Discomfort, Palpitations, Tachycardia, Syncope, Varicosities, Edema, Cyanosis Respiratory: No: Cough, Short of Breath, Other Gastrointestinal: No: Nausea, Vomiting, Diarrhea Genitourinary: No: Decreased Urinary Output, Oliguria Musculoskeletal: No: Limited ROM, Weakness, Cramping, Edema, Pain Skin: No Rash, No Itching, No Dryness, No Lumps, No Change in Pigmentation, No Change in Nails, No Alopecia, No Lesions Neurologic: No: Weakness, Dizziness, Syncope, Focal Abnormalities, Coordination Problem, Headache, Slurred Speech, Seizures Psychiatric: No: Depression, Suicidal Ideations, Homicidal Ideation Endocrine: No: Heat Intolerance, Cold Intolerance, Polydipsia, Polyuria, Other Physical Exam Narrative GENERAL: Well-nourished, obese patient. SKIN: Warm and dry. HEAD: Normocephalic and atraumatic. EYES: No scleral icterus. No injection or drainage. ENT: No nasal drainage noted. Mucous membranes pink. Airway patent. NECK: Supple, trachea midline. No JVD. CARDIOVASCULAR: Regular rate and rhythm without murmurs, gallops, or rubs. RESPIRATORY: Breath sounds equal bilaterally. No accessory muscle use. BREASTS: Bilateral exam showed no masses , no retractions, no nipple discharge. ABDOMEN/GI: Abdomen soft, non-tender, bowel sounds present, no rebound, no guarding Gravid to [-39] weeks size Fundal Height: [39-] GENITOURINARY: External Genitalia: intact and normal in appearance BUS glands: [-] Cervix: [-] Dilatation: [1-] Effacement: [-30] Station: [-3] Presentation: [vtx-] Membranes: [intact ] Uterine Contractions: [Every 8 minutes-] FHT's: Category: [1-] Baseline: [-133] Reactive: [-yes] Variability: [-mod] Decels: [0-] EXTREMITIES: No cyanosis or edema. BACK: Nontender without obvious deformity. No CVA tenderness. NEUROLOGICAL: Awake and alert. Motor and sensory grossly within normal limits. Five out of 5 muscle strength in all muscle groups. Normal speech. Data Data Orders Admit To Inpatient (04/16/17 ) Diet Liquid (04/17/17 Breakfast) ^ Labor Induction (04/16/17 21:13) ^ Saline Lock (04/16/17 21:13) ^ Vaginal Insert (04/16/17 21:13) ^ Vaginal Lavage (04/16/17 21:13) Heart (04/16/17 21:13) Sodium Chloride 0.9% Flush (Ns Flush) (04/17/17 09:00) Sodium Chloride 0.9% Flush (Ns Flush) (04/16/17 21:15) Dinoprostone Vag Insert (Cervidil Vag In (04/16/17 21:15) Complete Blood Count With Diff (04/16/17 21:14) Type And Screen (04/16/17 21:15) Comprehensive Metabolic Panel (04/16/17 21:15) Fentanyl Inj (Fentanyl Inj) (04/16/17 21:15) Assessment/Plan Assessment and Plan Patient is 32-year-old white female 39 weeks patient of [facility] to prevent presents for cervical ripening tonight and induction tomorrow for an LGA baby[8-1/2 pounds] and gestational diabetes at term, she has no complaints problems baby is active, no bleeding or leakage of fluid, heart rate tracing is reactive and there is a contractions every 8 minutes approximately. Blood sugar tonight 93, cervix is 1 /thick and high Impression- so gestational diabetes at 39 weeks and a multipara with an LGA baby sent in for induction Plan--Cervidil cervical ripening this evening and Pitocin induction tomorrow possibly with AROM Thomas Tanner II, MD Apr 16, 2017 21:24
[2017-04-16 21:56] LABS: AUTOMATED NEUTROPHIL # 10.1 TH/MM3 (1.8-7.7); BASOPHIL % 0.2 % (0.0-2.0); EOSINOPHIL # 0.1 TH/MM3 (0-0.4); EOSINOPHIL % 0.6 % (0.0-4.0); HEMATOCRIT 31.6 % (35.0-46.0); HEMO FLAGS DIFF FINAL; LYMPH % 15.3 % (9.0-44.0); MEAN CELL VOLUME 78.6 FL (80.0-100.0); MEAN CORPUSCULAR HEMOGLOBIN 24.6 PG (27.0-34.0); MEAN CORPUSCULAR HGB CONC 31.3 % (32.0-36.0); MONO % 4.5 % (0.0-8.0); NEUT % 79.4 % (16.0-70.0); PLATELET COUNT 315 TH/MM3 (150-450); RED BLOOD COUNT 4.02 MIL/MM3 (4.00-5.30); RED CELL DISTRIBUTION WIDTH 15.2 % (11.6-17.2); WHITE BLOOD COUNT 12.8 TH/MM3 (4.0-11.0)
[2017-04-16] MEDS ORDERED: ZOLPIDEM TARTRATE 10 MG TAB PO ONE (22:15)
[2017-04-16 22:35] LABS: BACTERIA, URINE MANY /hpf; BLOOD, URINE LARGE (NEG); COMMENT (UR) CULTURE INDICATED; CULTURE IF INDICATED CULTURE INDICATED; GLUCOSE,URINE NEG (NEG); KETONE, URINE 40 mg/dL (NEG); MUCUS URINE FEW /lpf (OCC); NITRITE,URINE NEG (NEG); PH, URINE 5.5 (5.0-8.5); SQUAMOUS EPITHELIAL CELL URINE 60 /hpf (0-5); URINE COLOR YELLOW (YELLW/STRAW)
[2017-04-17] VITALS (16 sets, daily range): BP systolic 103–137; BP diastolic 45–111; PULSE 96–281; RESP 18–26; TEMP 98.3–100.7
[2017-04-17 00:11] LABS: ANION GAP 10 MEQ/L (5-15); AST (GOT) 7 U/L (15-37); BICARBONATE 22.7 MEQ/L (21.0-32.0); BLOOD UREA NITROGEN 7 MG/DL (7-18); CHLORIDE 105 MEQ/L (98-107); GLOMERULAR FILTRATION RATE 185 ML/MIN (>89); POTASSIUM 3.6 MEQ/L (3.5-5.1); SODIUM (NA) 138 MEQ/L (136-145)
[2017-04-17] MEDS ORDERED: NIFEdipine 10 MG CAP ONE (00:13)
[2017-04-17 00:14] LABS: ALKALINE PHOSPHATASE 185 U/L (45-117); ALT (GPT) 11 U/L (10-53); TOTAL BILIRUBIN ADULT 0.4 MG/DL (0.2-1.0)
[2017-04-17] MEDS: LACTATED RINGER'S 1000 ML INJ 1,000 ML IV SCH ×3 (01:00→11:37)
[2017-04-17] MEDS ORDERED: fentaNYL 2MCG-BUPIV 0.125% INJ 100 ML ONE (03:07)
[2017-04-17] MEDS ORDERED: ePHEDrine/NS 25 MG/5 ML SYR IV PRN (04:15)
[2017-04-17] MEDS ORDERED: NO SYSTEM NARCOTICS PRN (04:15)
[2017-04-17] MEDS ORDERED: DO NOT ADMINISTER ANTICOAGULANTS PRN (04:15)
[2017-04-17] MEDS ORDERED: fentaNYL 2MCG-BUPIV 0.125% 100 ML EPIDURAL SCH (04:15)
[2017-04-17] MEDS ORDERED: OXYTOCIN 30 UNITS-500ML PREMIX 500 ML ONE (06:37)
[2017-04-17] MEDS ORDERED: OXYTOCIN 30 UNITS-500ML PREMIX 500 ML IV SCH (08:30)
[2017-04-17] MEDS ORDERED: SODIUM CHLORIDE 0.9% FLUSH 10 ML FLUSH IV FLUSH SCH (09:00)
--- NOTE | 2017-04-17 11:12 | PD.LABORPN ---
Subjective Subjective Pt seen and examined. Pt laying on side, feeling occasional contractions. Epidural in place. No new complaints at this time Objective Vital Signs Vital Signs Date Time Temp Pulse Resp B/P Pulse Ox O2 Delivery O2 Flow Rate FiO2 04/17/17 08:47 18 04/17/17 03:34 20 Objective Pelvic Exam: Dilatation: 5-6 Effacement: 80 Station: -2 Presentation: vertex Membranes: ruptured Uterine Contractions: q3-4 minutes FHT's: Category: 1 Baseline: 140 Reactive: yes Variability: moderate Decels: none Assessment/Plan Assessment and Plan 32 y/o at 39/2 weeks in labor Category 1 FHT Cervix 5-6/80/-2 AROM 0100 this morning GBS negative -Expectant management -Continuous FHT -Pitocin 8milliunits/min -Anticipate vaginal delivery Donte Estes MD R1 Apr 17, 2017 11:12
--- NOTE | 2017-04-17 15:04 | PD.OB.DELI ---
Delivery Date: Apr 17, 2017 Anesthesia: Epidural Episiotomy: None Vaginal Delivery: Normal, Spontaneous Presentation: Occiput anterior, Vertex Nuchal Cord: None Delayed cord clamping (45 sec): Yes Infant: Male One Minute : 9 Five Minute : 9 Weight: 3500 Placenta: Spontaneous delivery, Intact Laceration: No lacerations Additional Information EBL 200cc Dania Gayle MD Apr 17, 2017 15:03
[2017-04-17] MEDS ORDERED: ZOLPIDEM TARTRATE 5 MG TAB PO PRN (15:15)
[2017-04-17] MEDS ORDERED: ACETAMINOPHEN 325 MG TAB PO PRN (15:15)
[2017-04-17] MEDS ORDERED: WITCH HAZEL 50%/GLYCERIN 12.5% 40 PAD JAR TOPICAL PRN (15:15)
[2017-04-17] MEDS ORDERED: BENZOCAINE 20% TOPICAL SPRAY 60 ML CAN TOPICAL PRN (15:15)
[2017-04-17] MEDS ORDERED: DOCUSATE SODIUM 50 MG/SENNA 8.6 MG TAB PO PRN (15:15)
[2017-04-17] MEDS ORDERED: ALUMINUM/MAGNESIUM/SIMETH 30 ML CUP PO PRN (15:15)
[2017-04-17] MEDS ORDERED: ONDANSETRON ODT 4 MG TAB PO PRN (15:15)
[2017-04-17] MEDS ORDERED: MEASLES, MUMPS, RUBELLA VACCINE 0.5 ML VIAL SQ ONE (16:00)
[2017-04-17] MEDS ORDERED: DIPHTH/TETANUS/ACEL PERTUSSIS (BOOSTER) 0.5 ML VIAL/PFS IM ONE (16:00)
[2017-04-17] MEDS: IBUPROFEN 600 MG TAB PO PRN ×2 (16:20→23:37)
[2017-04-17] MEDS: oxyCODONE/ACETAMINOPHEN 5 MG/325 MG TAB PO PRN ×2 (21:10→23:37)
[2017-04-18] MEDS: IBUPROFEN 600 MG TAB PO PRN ×3 (05:15→18:01)
[2017-04-18] MEDS: oxyCODONE/ACETAMINOPHEN 5 MG/325 MG TAB PO PRN ×3 (05:16→18:01)
[2017-04-18 08:00] VITALS: BP 100/65; PULSE 80; RESP 20; TEMP 97.8
--- NOTE | 2017-04-18 11:34 | HHI.OB ---
Subjective Post Day: 1 Remarks 32 year old female s/p IVD at 39 wks gestation, PPD 1. AFVSS. Patient reports she is feeling well. Bleeding is decreasing and pain is well- controlled. She is breast feeding and bonding well with baby. Ambulating without difficulties. She is tolerating a diet without nausea or vomiting. She has not had a bowel movement. She has passed gas. Denies chest pain, dysuria, shortness of breath, or calf pain. Objective Vitals/I&O Vital Signs Date Time Temp Pulse Resp B/P Pulse Ox O2 Delivery O2 Flow Rate FiO2 04/18/17 08:00 100/65 04/18/17 08:00 97.8 80 20 04/17/17 21:00 98.3 04/17/17 21:00 96 20 103/57 04/17/17 20:30 98.3 96 20 103/57 04/17/17 18:19 98.8 04/17/17 16:50 100.6 106 26 137/69 04/17/17 15:16 109 121/65 04/17/17 15:05 100.7 18 04/17/17 15:02 149 113/45 04/17/17 15:00 123 114/46 04/17/17 14:58 124/93 04/17/17 14:45 121 136/111 04/17/17 14:45 281 04/17/17 14:40 150 04/17/17 14:35 133 04/17/17 14:30 107 114/61 04/17/17 14:30 18 04/17/17 14:25 138 04/17/17 14:20 103 04/17/17 14:15 99 04/17/17 14:15 102 127/76 Objective Remarks GENERAL: Well-nourished, well-developed patient. CARDIOVASCULAR: Regular rate and rhythm without murmurs, gallops, or rubs. RESPIRATORY: Breath sounds equal bilaterally. No accessory muscle use. ABDOMEN/GI: Abdomen soft, non-tender. Fundus: Firm, non-tender at umbilicus. GENITOURINARY: Light to moderate bleeding. EXTREMITIES: No cyanosis or edema, non-tender, without signs of DVT. Medications and IVs Current Medications Medications (Trade) Dose Ordered Sig/Tang Route Start Time Stop Time Status Last Admin (NS Flush) 2 ml BID IV FLUSH 04/17/17 09:00 (NS Flush) 2 ml UNSCH PRN IV FLUSH 04/16/17 21:15 Fentanyl Citrate 50 mcg 50 mcg Q3HR PRN IV PUSH 04/16/17 21:15 04/17/17 01:28 Lactated Ringer's 1,000 ml @ 125 mls/hr Q8H IV 04/17/17 02:00 04/17/17 11:37 Fentanyl/ Bupivacaine HCl 100 ml @ 0 mls/hr TITRATE EPIDURAL 04/17/17 04:15 04/17/17 08:47 (Pitocin 30 Units-NS 500 ml Premix) 500 ml @ 0 mls/hr TITRATE IV 04/17/17 08:30 (Tylenol) 650 mg Q4H PRN PO 04/17/17 15:15 04/17/17 17:18 (Motrin) 600 mg Q6H PRN PO 04/17/17 15:15 04/18/17 11:15 (Percocet 5-325 Mg) 1 tab Q4H PRN PO 04/17/17 15:15 04/17/17 23:37 (Percocet 5-325 Mg) 2 tab Q4H PRN PO 04/17/17 15:15 04/18/17 11:16 (Americaine 20% Top Spr) 1 spray Q4H PRN TOPICAL 04/17/17 15:15 04/17/17 17:19 (Tucks Pads) 1 applic QID PRN TOPICAL 04/17/17 15:15 04/17/17 17:19 (Flor-Colace) 2 tab Q12H PRN PO 04/17/17 15:15 04/17/17 17:19 (Ambien) 5 mg HS PRN PO 04/17/17 15:15 (Mag-Al Plus Susp Liq) 15 ml Q8H PRN PO 04/17/17 15:15 (Zofran Odt) 4 mg Q6H PRN PO 04/17/17 15:15 Assessment/Plan Assessment and Plan 32 yo female s/p IVD PPD 1. - AFVSS - Continue routine care - Motrin and Percocet PRN pain - Encourage OOB - Pelvic rest x 6 wks. - Contraception: TBD - Anticipate D/C 7/ Dex Mcknight MD R1 Apr 18, 2017 11:34
[2017-04-18 20:16] VITALS: BP 121/65; PULSE 84; RESP 18; TEMP 97.8
[2017-04-19] MEDS: oxyCODONE/ACETAMINOPHEN 5 MG/325 MG TAB PO PRN ×3 (00:04→11:32)
[2017-04-19] MEDS: IBUPROFEN 600 MG TAB PO PRN ×3 (00:04→11:32)
[2017-04-19] MEDS ORDERED: IBUP-232 PO (06:32)
--- NOTE | 2017-04-19 06:33 | HHI.DCPOC ---
Discharge Care Plan Diagnosis: (1) Normal vaginal delivery Report Symptoms to Your Doctor -Temperature above 100.5 degrees -Redness, of incision or excessive or foul smelling drainage -Unusual pain or calf pain -Increased vaginal bleeding -Painful or difficulty urinating -Feelings of extreme sadness or anxiety after 2 weeks Goals to Promote Your Health * To prevent worsening of your condition and complications * To maintain your health at the optimal level Directions to Meet Your Goals Take your medications as prescribed Follow your dietary instruction Follow activity as directed Ensure plenty of rest for recovery Drink fluids for hydration Keep your appointments as scheduled Take your immunizations and boosters as scheduled If your symptoms worsen call your PCP, if no PCP go to Urgent Care Center or Emergency Room Smoking is Dangerous to Your Health. Avoid second hand smoke Call the 24-hour crisis hotline for domestic abuse at Dex Mcknight MD R1 Apr 19, 2017 06:33
[2017-04-19 08:00] VITALS: BP 115/72; PULSE 80; RESP 20; TEMP 97.7
--- NOTE | 2017-04-19 10:49 | HHI.OB ---
Subjective Post Day: 2 Remarks 32 year old female s/p IVD at 39 wks gestation, PPD 2. AFVSS. Patient reports she is feeling well. Bleeding is decreasing and pain is well- controlled. She is breast feeding and bonding well with baby. Ambulating without difficulties. She is tolerating a diet without nausea or vomiting. She has not had a bowel movement. She has passed gas. Denies chest pain, dysuria, shortness of breath, or calf pain. Objective Vitals/I&O Vital Signs Date Time Temp Pulse Resp B/P Pulse Ox O2 Delivery O2 Flow Rate FiO2 04/19/17 08:00 97.7 04/19/17 08:00 80 20 115/72 04/18/17 20:16 97.8 84 18 121/65 Objective Remarks GENERAL: Well-nourished, well-developed patient. CARDIOVASCULAR: Regular rate and rhythm without murmurs, gallops, or rubs. RESPIRATORY: Breath sounds equal bilaterally. No accessory muscle use. ABDOMEN/GI: Abdomen soft, non-tender. Fundus: Firm, non-tender at umbilicus. GENITOURINARY: Light to moderate bleeding. EXTREMITIES: No cyanosis or edema, non-tender, without signs of DVT. Medications and IVs Current Medications Medications (Trade) Dose Ordered Sig/Tang Route Start Time Stop Time Status Last Admin (NS Flush) 2 ml BID IV FLUSH 04/17/17 09:00 (NS Flush) 2 ml UNSCH PRN IV FLUSH 04/16/17 21:15 Fentanyl Citrate 50 mcg 50 mcg Q3HR PRN IV PUSH 04/16/17 21:15 04/17/17 01:28 Lactated Ringer's 1,000 ml @ 125 mls/hr Q8H IV 04/17/17 02:00 04/17/17 11:37 Fentanyl/ Bupivacaine HCl 100 ml @ 0 mls/hr TITRATE EPIDURAL 04/17/17 04:15 04/17/17 08:47 (Pitocin 30 Units-NS 500 ml Premix) 500 ml @ 0 mls/hr TITRATE IV 04/17/17 08:30 (Tylenol) 650 mg Q4H PRN PO 04/17/17 15:15 04/17/17 17:18 (Motrin) 600 mg Q6H PRN PO 04/17/17 15:15 04/19/17 06:08 (Percocet 5-325 Mg) 1 tab Q4H PRN PO 04/17/17 15:15 04/18/17 18:01 (Percocet 5-325 Mg) 2 tab Q4H PRN PO 04/17/17 15:15 04/19/17 06:08 ([place] 20% Top Spr) 1 spray Q4H PRN TOPICAL 04/17/17 15:15 04/17/17 17:19 (Tucks Pads) 1 applic QID PRN TOPICAL 04/17/17 15:15 04/17/17 17:19 (Flor-Colace) 2 tab Q12H PRN PO 04/17/17 15:15 04/17/17 17:19 (Ambien) 5 mg HS PRN PO 04/17/17 15:15 (Mag-Al Plus Susp Liq) 15 ml Q8H PRN PO 04/17/17 15:15 (Zofran Odt) 4 mg Q6H PRN PO 04/17/17 15:15 Assessment/Plan Assessment and Plan 32 yo female s/p IVD PPD 2. - AFVSS - Continue routine care - Motrin and Percocet PRN pain - Encourage OOB - Pelvic rest x 6 wks. - Contraception: TBD - Discharge home today Dex Mcknight MD R1 Apr 19, 2017 10:49
== END 2017-04-19 14:00 | disposition home or self-care (01) | DRG 775 ==
LOC: H2EB 20:01 → H1EA 04-17 16:49
PROVIDERS: ADMIT Obstetrics & Gynecology Maternal & Fetal Medicine; ATTEND Obstetrics & Gynecology Maternal & Fetal Medicine
PROC: 3E0P7GC Introduction of Other Therapeutic Substance into Female Reproductive, Via Natural or Artificial Opening (ICD-10-PCS; 2017-04-16)
PROC: 10E0XZZ Delivery of Products of Conception, External Approach (ICD-10-PCS; principal; 2017-04-17)
PROC: 10907ZC Drainage of Amniotic Fluid, Therapeutic from Products of Conception, Via Natural or Artificial Opening (ICD-10-PCS; 2017-04-17)
PROC: 3E0S3CZ (ICD-10-PCS; 2017-04-17)
PROC: 00HU33Z Insertion of Infusion Device into Spinal Canal, Percutaneous Approach (ICD-10-PCS; 2017-04-17)
DX: O36.63X0 Maternal care for excessive fetal growth, third trimester, not applicable or unspecified (principal); Z68.42 Body mass index [BMI] 45.0-49.9, adult; O99.213 Obesity complicating pregnancy, third trimester; O24.420 Gestational diabetes mellitus in childbirth, diet controlled; Z37.0 Single live birth; Z3A.39 39 weeks gestation of pregnancy
CPT/HCPCS: 80053; 81001; 82948; 85025; 86850; 86900; 86901; 87086; 90715; J2590; J3010; J7120